=== PATIENT | female | born 1960 ===

== ENCOUNTER 2021-11-01 06:23 | Inpatient (IN) | payer MEDICAID ==
[2021-11-01] MEDS ORDERED: NORepinephrine/NS 8 MG-250 ML 8 MG/250 ML INFUS..BTL IV ONE (06:29)
[2021-11-01] MEDS ORDERED: SODIUM CHLORIDE 0.9% 1000 ML 1,000 ML IV ONE (06:30)
[2021-11-01] MEDS: NORepinephrine/NS 8 MG-250 ML 8 MG/250 ML INFUS..BTL IV SCH ×2 (06:40→16:57)
--- NOTE | 2021-11-01 06:56 | Emergency Department Report ---
HPI - General Chief Complaint: Cardiac Arrest/CPR Time Seen by Provider: 11/01/21 06:28 - HPI HPI: EMS got the call at 533 about the patient who collapsed. They got to the scene and found the patient pulseless apneic and unresponsive. The said that they were walking together when suddenly she collapsed. EMS found the patient in asystole and immediately intubated and performed CPR and ACLS. They got a right tibial IO access and gave 3 rounds of epinephrine on the way to the emergency department. Just prior to arrival the patient regained spontaneous circulation 45 minutes after the call. I am unable to obtain any other information since the patient is unresponsive and intubated. ED Past Medical Hx - Past Medical History Additional medical history: Unable to obtain any information since the patient is unresponsive intubated. ED Review of Systems ROS: Unable to obtain review of systems since the patient is unresponsive and intubated. Physical Exam - Physical Exam Physical Exam: Physical Exam Constitutional: General: Arrived unresponsive. The patient is intubated with a 7 ET tube. 21 at the lip. Appearance: No diaphoresis. HENT: Head: Normocephalic. There is no head trauma Eyes: Pupils: Pupils are equal, mid dilated and unreactive Neck: Musculoskeletal: Normal range of motion. Cardiovascular: Rate and Rhythm: Initially there was no heart sounds. Pulses: No pulses. Heart sounds: No heart sounds Pulmonary: Effort: Good bilateral breath sounds Breath sounds: No wheezing or rales. Chest: Chest wall: No tenderness. Abdominal: General: There is no distension. Palpations: There is no mass. Tenderness: There is no abdominal tenderness. There is no guarding or rebound. Musculoskeletal: Normal range of motion. Skin: General: Skin is warm and dry. Neurological: Mental Status: Unresponsive Psychiatric: Unresponsive ED Course - Reevaluation(s) Reevaluation #1: 11/01/21 06:56 When the patient arrived we could not feel a pulse so we started CPR and gave the patient 1 mg of epinephrine through her intraosseous line. Her ET tube seem to be well positioned with bilateral breath sounds and a positive end-tidal CO2 change. We immediately obtained an EKG at 631 that showed a rate of 104, tachycardia. The rhythm is atrial fibrillation. There is a right bundle branch block. There is diffuse ST segment depression consistent with possible ischemia. But there is no STEMI criteria. Dr. Fortune from cardiology was texted the patient's EKG and he agreed that this did not meet STEMI criteria. Reevaluation #2: 11/01/21 09:26 The patient is on 8 mcg of Levophed which is lower than the 20 that she started out with. She seems more stable. The CT shows severe brain edema consistent with prolonged hypoxia. I spoke to the daughter and her sister were at the bedside now and explained her grave prognosis. I also discussed DNR with the family but they said that the patient would want to be revived so at the time the patient is a full code. Her chemistries are otherwise normal. Her repeat ABG show some progress in her acidosis 11 give her 1 amp of bicarb to help her with that. At this time we are going to go ahead and admit her to the intensive care unit. Total critical care time excluding procedures: 60 minutes. - Central Line Placement Right IJ Consent Obtained: emergent situation Time Out Performed: Yes MD Prep: mask, gown, gloves Central Line Prep: Povidone-Iodine 1%, Chlorhexidine scrub, sterile drapes applied Ultrasound Used for Placement: Yes Central Line Lumen Inserted: triple Reason for Insertion: Emergency Venous Access Bloods Obtained for Lab: Yes Central Line Position: good blood return, all ports aspirated, flus, sutured in place with 2-0 Dressing Applied: Tegaderm Post Procedure X-Ray: tip of catheter in good p Patient Tolerated Procedure: well Complications: none ED Medical Decision Making - Lab Data Result diagrams: 11/01/21 07:25 11/01/21 07:25 Critical care attestation.: If time is entered above; I have spent that time in minutes in the direct care of this critically ill patient, excluding procedure time. ED Disposition Clinical Impression: Cardiac arrest, Cerebral edema, Hypotension Disposition: 02 [facility]ORT TERM HOSPITAL Is pt being admited?: Yes Does the pt Need Aspirin: No Condition: Critical
[2021-11-01 07:06] LABS: ABG Base Excess -16.2 mmol/L (-2.0-3.0); ABG HCO3 16.4 mmol/L (20.0-26.0); ABG Methemoglobin 0.4 % (0.0-1.5); ABG Oxygen Saturation 99.3 % (95.0-99.0); ABG PCO2 74.8 mm Hg
[2021-11-01 07:18] LABS: ABG PH 6.96 pH Units (7.350-7.450); ABG PO2 273.3 mm Hg (80.0-90.0)
--- NOTE | 2021-11-01 07:18 | XRay Report ---
CHEST 1 VIEW 11/01/2021 6:59 AM INDICATION / CLINICAL INFORMATION: Chest Pain. COMPARISON: None available. FINDINGS: SUPPORT DEVICES: ET tube about 5 cm above the vishal. Right IJ CVL appears appropriately position. HEART / MEDIASTINUM: No significant abnormality. LUNGS / PLEURA: No significant pulmonary or pleural abnormality. No pneumothorax. ADDITIONAL FINDINGS: No significant additional findings. IMPRESSION: 1. Endotracheal tube in expected position. Signer Name: Chao Allred MD Signed: 11/01/2021 7:14 AM Workstation Name: [facility]
[2021-11-01 07:46] LABS: Mean Corpuscular HGB Conc 31 % (30-34); Mean Corpuscular Volume 93 fl (79-97); Platelet Count 206 K/mm3 (140-440); Red Blood Count 4.33 M/mm3 (3.65-5.03)
[2021-11-01 07:48] LABS: Hematocrit 40.4 % (30.3-42.9); Hemoglobin 12.4 gm/dl (10.1-14.3)
[2021-11-01 07:55] LABS: INR 1.1 (0.87-1.13)
[2021-11-01 07:56] LABS: Partial Thromboplastin Time 40.6 Sec. (24.2-36.6)
[2021-11-01 08:02] LABS: Albumin 3.4 g/dL (3.9-5); Calcium 7.8 mg/dL (8.4-10.2)
--- NOTE | 2021-11-01 08:28 | Cat Scan Report ---
NONENHANCED CT SCAN OF THE HEAD: INDICATION / CLINICAL INFORMATION: 61 years Female; collapse. TECHNIQUE: Routine CT head without contrast. All CT scans at this location are performed using CT dos e reduction for ALARA by means of automated exposure control. COMPARISON: None. FINDINGS: BRAIN / INTRACRANIAL CONTENTS: Abnormal CT scan Loss of ortiz matter white matter interface in both cerebral hemispheres; low-attenuation areas in th e caudate and in the lentiform nucleus bilaterally; low-attenuation areas in the cerebral hemispheres and cerebellar hemispheres; CT findings consistent with bilateral severe brain edema. Increased CT attenuation in the basal cisterns (pseudo subarachnoid hemorrhage appearance) is due to adjacent low- attenuation areas in the brain. No midline shift Ventricles are system is nondilated Chronic lacune in the left caudate Increased is CT attenuation in the venous sinuses ORBITS: No significant abnormality of visualized orbits. SINUSES / MASTOIDS: No significant abnormality of the visualized paranasal sinuses or mastoid air abby ls. ADDITIONAL FINDINGS: Large sebaceous cyst IMPRESSION: CT findings consistent with bilateral severe brain edema Signer Name: Walter Fish MD Signed: 11/01/2021 8:24 AM Workstation Name: [email or web address]
--- NOTE | 2021-11-01 08:52 | XRay Report ---
XR abdomen 1V ap INDICATION: OG placement COMPARISON: None. FINDINGS/IMPRESSION: Enteric tube terminates in the mid stomach. Side-port is beneath the GE junction. Signer Name: Bubba Shaw MD Signed: 11/01/2021 8:47 AM Workstation Name: [id number]
[2021-11-01 08:59] LABS: ABG Base Excess -14.2 mmol/L (-2.0-3.0); ABG HCO3 16.2 mmol/L (20.0-26.0); ABG Methemoglobin 0.6 % (0.0-1.5); ABG Oxygen Saturation 89.8 % (95.0-99.0); ABG PCO2 56.5 mm Hg; ABG PO2 74.1 mm Hg (80.0-90.0)
[2021-11-01 08:59] LABS: Total Cells Counted 100
[2021-11-01 09:00] LABS: Band Neutrophils # (Manual) 0.3 K/mm3; Basophils % (Manual) 0 % (0.0-1.8); Myelocytes # (Manual) 0.2 K/mm3; Platelet Estimate Consistent w Auto; Promyelocytes # (Manual) 0.3 K/mm3
[2021-11-01] MEDS ORDERED: LORazepam 2 MG/ML VIAL IV ONE (09:00)
[2021-11-01 09:05] LABS: Bacteria,Urine 1+ /HPF (Negative); Mucus,Urine FEW /HPF
[2021-11-01 09:06] LABS: ABG PH 7.075 pH Units (7.350-7.450)
[2021-11-01 09:07] LABS: Benzodiazepines Screen,Urine Negative; Cannabinoid Screen,Urine Negative; Methadone Screen,Urine Negative; Opiate Screen,Urine Negative
[2021-11-01] MEDS ORDERED: SODIUM BICARB 8.4% 50 MEQ/50 ML SYRINGE IV ONE (09:18)
[2021-11-01 09:19] LABS: Amphetamine Screen,Urine Positive; Cocaine Screen,Urine Positive
[2021-11-01 09:29] LABS: Bilirubin,Urine Negative (Negative); Color,Urine Yellow (Yellow)
[2021-11-01 09:30] LABS: Blood,Urine Large (Negative); PH,Urine 6.5 (5.0-7.0); Urobilinogen,Urine < 2.0 mg/dL (<2.0)
--- NOTE | 2021-11-01 11:44 | Electrocardiograph Report ---
[facility] Test Date: 2021-11-01 Test Time: 06:31:12 Pat Name: LAURA RAMIREZ Department: Room: Gender: F Terminal Supervisor: MANE : 1960 Requested By: KIRAN GASTON Order Number: [id number] Reading MD: Fuentes Roberts Measurements Intervals [place] Rate: 104 P: OK: QRS: 66 QRSD: 135 T: -87 QT: 363 QTc: 477 Interpretive Statements Atrial fibrillation Right bundle branch block Repol abnrm suggests ischemia, diffuse leads No previous ECG available for comparison Electronically Signed On 11-01-2021 11:44:28 EDT by Fuentes Roberts
[2021-11-01] MEDS ORDERED: ACETAMINOPHEN 650 MG RECT SUPP PR PRN (12:30)
[2021-11-01] MEDS ORDERED: ONDANSETRON 4 MG/2 ML INJ IV PRN (12:30)
[2021-11-01] MEDS ORDERED: MORPHINE 2 MG/1 ML INJ IV PRN (12:30)
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
[2021-11-01] MEDS ORDERED: ENOXAPARIN 40 MG/0.4 ML INJ SUB-Q SCH (13:00)
[2021-11-01] MEDS: HEPARIN 5,000 UNIT/1 ML VIAL SUB-Q SCH ×2 (15:55→22:12)
[2021-11-02] MEDS ORDERED: SODIUM CHLORIDE 0.9% 1000 ML 1,000 ML IV SCH (03:45)
[2021-11-02 05:08] LABS: Basophils % (Auto) 0.2 % (0.0-1.8); Eosinophils % (Auto) 0.1 % (0.0-4.3); Hematocrit 45.9 % (30.3-42.9); Lymphocytes # (Auto) 0.8 K/mm3 (1.2-5.4); Lymphocytes % (Auto) 6.3 % (13.4-35.0); Mean Corpuscular HGB Conc 33 % (30-34); Mean Corpuscular Volume 87 fl (79-97); Monocytes # (Auto) 0.5 K/mm3 (0.0-0.8); Platelet Count 200 K/mm3 (140-440); Red Blood Count 5.27 M/mm3 (3.65-5.03)
[2021-11-02 05:14] LABS: Albumin 3.5 g/dL (3.9-5); Calcium 7.5 mg/dL (8.4-10.2)
[2021-11-02 06:14] LABS: ABG Base Excess -1.8 mmol/L (-2.0-3.0); ABG HCO3 23.7 mmol/L (20.0-26.0); ABG Methemoglobin 0.5 % (0.0-1.5); ABG Oxygen Saturation 97.2 % (95.0-99.0); ABG PCO2 43.3 mm Hg; ABG PH 7.357 pH Units (7.350-7.450); ABG PO2 97.4 mm Hg (80.0-90.0)
[2021-11-02] MEDS: NORepinephrine/NS 8 MG-250 ML 8 MG/250 ML INFUS..BTL IV SCH ×2 (06:49→20:11)
[2021-11-02] MEDS: HEPARIN 5,000 UNIT/1 ML VIAL SUB-Q SCH ×2 (09:14→21:04)
--- NOTE | 2021-11-02 09:57 | XRay Report ---
ABDOMEN 1 VIEW(S) INDICATION / CLINICAL INFORMATION: New OG placement. COMPARISON: 11/01/2021 FINDINGS: TUBES / LINES: Esophagogastric tube sidehole projects over the proximal stomach.. BOWEL GAS PATTERN/EXTRALUMINAL GAS: There are mildly dilated loops of gas-filled small bowel. No pneu matosis or secondary signs of free air. ADDITIONAL FINDINGS: No significant additional findings. IMPRESSION: 1. Esophagogastric tube sidehole projects over the proximal stomach. 2. Loops of small bowel are mildly dilated compatible with possible obstruction/ileus. Signer Name: Shahzad Whitney MD Signed: 11/02/2021 9:53 AM Workstation Name: [id number] [employer]
--- NOTE | 2021-11-02 10:29 | Consultation ---
History of Present Illness Consult date: 11/02/21 Requesting physician: KIRAN GASTON Reason for consult: other (Out of Hospital Cardiac arrest) History of present illness: 61 y/o female with prior history of polysubstance abuse per family admitted via the ED as out of hospital cardiac arrest. Patient was down for about 45 minutes per report. Patient has diffuse cerebral edema already on initial imaging in the ED. She is unresponsive on the vent and not on sedation. Past History Past Medical History: other (unable to obtain) Past Surgical History: Other (unable to obtain) Social history: other (polysubstanc abuse) Family history: other (unable to obtain) Medications and Allergies Allergies Allergy/AdvReac Type Severity Reaction Status Date / Time No Known Allergies Allergy Verified 11/01/21 10:57 Active Meds: Active Medications Acetaminophen (Acetaminophen 650 Mg Rect Supp) 650 mg UT Q6H PRN PRN Reason: Pain MILD(1-3)/Fever >100.5/ATKINS Heparin Sodium (Porcine) (Heparin 5,000 Unit/1 Ml Vial) 5,000 unit SUB-Q Q12HR LAW Last Admin: 11/02/21 09:14 Dose: 5,000 unit NORepinephrine/NS 8 MG-250 ML (Norepinephrine/Ns 8 Mg-250 Ml (Double Conc)) 8 mg in 250 mls @ 3.75 mls/hr IV TITRATE LAW; Protocol Last Titration: 11/02/21 10:05 Dose: 4 mcg/min, 7.5 mls/hr Lactated Ringer's (Lactated Ringers) 1,000 mls @ 999 mls/hr IV BOLUS ONE Stop: 11/02/21 11:26 Morphine Sulfate (Morphine 2 Mg/1 Ml Inj) 2 mg IV Q4H PRN PRN Reason: Pain, Moderate (4-6) Ondansetron HCl (Ondansetron 4 Mg/2 Ml Inj) 4 mg IV Q8H PRN PRN Reason: Nausea And Vomiting Sodium Chloride (Sodium Chloride 0.9% 10 Ml Flush Syringe) 10 ml IV BID LAW Last Admin: 11/02/21 09:14 Dose: 10 ml Sodium Chloride (Sodium Chloride 0.9% 10 Ml Flush Syringe) 10 ml IV PRN PRN PRN Reason: LINE FLUSH Review of Systems ROS unobtainable: due to endotracheal tube, due to mental status Physical Examination Vital signs: Vital Signs Pulse Pulse Ox 138 H 98 11/01/21 06:32 11/01/21 06:32 General appearance: no acute distress, comatose Eyes: non-icteric ENT: other (orally intubated ) Neck: supple Effort: normal Ascultation: Bilateral: clear Percussion: Bilateral: not dull Cardiovascular: regular rate and rhythm Gastrointestinal: normoactive bowel sounds, soft Extremities: pulses normal unable to assess Results - Laboratory Findings CBC and BMP: 11/02/21 04:27 11/02/21 04:27 ABG ABG pH 7.357 pH Units (7.350-7.450) 11/02/21 04:50 ABG pCO2 43.3 mm Hg 11/02/21 04:50 ABG pO2 97.4 mm Hg (80.0-90.0) H 11/02/21 04:50 ABG O2 Saturation 97.2 % (95.0-99.0) 11/02/21 04:50 PT/INR, D-dimer PT 15.5 Sec. (12.2-14.9) H 11/01/21 07:25 INR 1.10 (0.87-1.13) 11/01/21 07:25 Abnormal lab findings: Abnormal Labs 11/01/21 11/01/21 11/01/21 06:50 07:25 07:25 WBC 15.5 H RBC Hgb Hct RDW 17.0 H Lymph % (Auto) Lymph # (Auto) Seg Neutrophils % Seg Neutrophils # Seg Neutrophils # Man 10.1 H PT 15.5 H APTT 40.6 H ABG pH 6.960 L* ABG pO2 273.3 H ABG HCO3 16.4 L ABG O2 Saturation 99.3 H ABG Base Excess -16.2 L ABG Carboxyhemoglobin 5.5 H Oxyhemoglobin 93.4 L Sodium Potassium Chloride Carbon Dioxide BUN Creatinine Glucose POC Glucose Lactic Acid Calcium AST ALT Alkaline Phosphatase Total Protein Albumin Urine Blood Urine WBC (Auto) 11/01/21 11/01/21 11/01/21 07:25 07:25 23:44 WBC RBC Hgb Hct RDW Lymph % (Auto) Lymph # (Auto) Seg Neutrophils % Seg Neutrophils # Seg Neutrophils # Man PT APTT ABG pH ABG pO2 ABG HCO3 ABG O2 Saturation ABG Base Excess ABG Carboxyhemoglobin Oxyhemoglobin Sodium 146 H Potassium 3.5 L Chloride Carbon Dioxide 14 L BUN Creatinine 1.5 H Glucose 292 H POC Glucose 138 H Lactic Acid 14.50 H* Calcium 7.8 L AST 112 H ALT 78 H Alkaline Phosphatase 136 H Total Protein 6.0 L Albumin 3.4 L Urine Blood Urine WBC (Auto) 11/01/21 11/01/21 11/02/21 Unknown Unknown 04:27 WBC 12.2 H RBC 5.27 H Hgb 15.0 H Hct 45.9 H RDW 16.0 H Lymph % (Auto) 6.3 L Lymph # (Auto) 0.8 L Seg Neutrophils % 89.4 H Seg Neutrophils # 10.9 H Seg Neutrophils # Man PT APTT ABG pH 7.075 L* ABG pO2 74.1 L ABG HCO3 16.2 L ABG O2 Saturation 89.8 L ABG Base Excess -14.2 L ABG Carboxyhemoglobin Oxyhemoglobin 86.0 L Sodium Potassium Chloride Carbon Dioxide BUN Creatinine Glucose POC Glucose Lactic Acid Calcium AST ALT Alkaline Phosphatase Total Protein Albumin Urine Blood Large A Urine WBC (Auto) 34.0 H 11/02/21 11/02/21 11/02/21 04:27 04:50 05:28 WBC RBC Hgb Hct RDW Lymph % (Auto) Lymph # (Auto) Seg Neutrophils % Seg Neutrophils # Seg Neutrophils # Man PT APTT ABG pH ABG pO2 97.4 H ABG HCO3 ABG O2 Saturation ABG Base Excess ABG Carboxyhemoglobin Oxyhemoglobin Sodium 149 H Potassium Chloride 108.9 H Carbon Dioxide BUN 33 H Creatinine 1.9 H Glucose 128 H POC Glucose 109 H Lactic Acid Calcium 7.5 L AST 133 H ALT 123 H Alkaline Phosphatase Total Protein Albumin 3.5 L Urine Blood Urine WBC (Auto) Assessment and Plan 61 y/o female with acute respiratory failure secondary to out of hospital cardiac arrest with prolonged downtime. Spoke with at bedside this am who was not very understanding of the current situation. He made statements such as "so you are the end all be all" and "you trying to put my in the dirt". I tried my best to explain the clinical state. He also states that he would like his transferred to [facility]. I explained that if he has an accepting physician, if he gives us the name then we can arrange transfer, but at this time, we would not be calling [facility] for transfer as clinically there is nothing they could do that we are not already doing for this patient. The primary team has spoken with the daughter but I am not sure of the exact details of that convo. 1. Continue supportive measures 2. Wean Fio2 as tolerate for sats >88% 3. Follow up echo report 4. Wean Pressors for MAPs> 65 5. Very poor prognosis given cerebral edema present already post arrest and like of neurological improvement. CCT 31 minutes
[2021-11-02] MEDS ORDERED: LACTATED RINGERS 1,000 ML IV ONE ×2 (11:00→14:18)
--- NOTE | 2021-11-02 11:35 | Consultation ---
History of Present Illness Consult date: 11/02/21 History of present illness: 61-year-old female presenting out of hospital cardiopulmonary arrest. Currently intubated and unresponsive on mechanical ventilator. Patient with a known history of polysubstance abuse. Past History Past Medical History: other (unable to obtain) Past Surgical History: Other (unable to obtain) Social history: other (polysubstanc abuse) Family history: other (unable to obtain) Medications and Allergies Allergies Allergy/AdvReac Type Severity Reaction Status Date / Time No Known Allergies Allergy Verified 11/01/21 10:57 Active Meds: Active Medications Acetaminophen (Acetaminophen 650 Mg Rect Supp) 650 mg AR Q6H PRN PRN Reason: Pain MILD(1-3)/Fever >100.5/ATKINS Heparin Sodium (Porcine) (Heparin 5,000 Unit/1 Ml Vial) 5,000 unit SUB-Q Q12HR LAW Last Admin: 11/02/21 09:14 Dose: 5,000 unit NORepinephrine/NS 8 MG-250 ML (Norepinephrine/Ns 8 Mg-250 Ml (Double Conc)) 8 mg in 250 mls @ 3.75 mls/hr IV TITRATE LAW; Protocol Last Titration: 11/02/21 11:03 Dose: 4 mcg/min, 7.5 mls/hr Lactated Ringer's (Lactated Ringers) 1,000 mls @ 999 mls/hr IV BOLUS ONE Stop: 11/02/21 12:00 Last Admin: 11/02/21 11:00 Dose: 999 mls/hr Morphine Sulfate (Morphine 2 Mg/1 Ml Inj) 2 mg IV Q4H PRN PRN Reason: Pain, Moderate (4-6) Ondansetron HCl (Ondansetron 4 Mg/2 Ml Inj) 4 mg IV Q8H PRN PRN Reason: Nausea And Vomiting Sodium Chloride (Sodium Chloride 0.9% 10 Ml Flush Syringe) 10 ml IV BID LAW Last Admin: 11/02/21 09:14 Dose: 10 ml Sodium Chloride (Sodium Chloride 0.9% 10 Ml Flush Syringe) 10 ml IV PRN PRN PRN Reason: LINE FLUSH Review of Systems ROS unobtainable: due to endotracheal tube, due to mental status Physical Examination Vital Signs Pulse Pulse Ox 138 H 98 11/01/21 06:32 11/01/21 06:32 General appearance: other (intubated on mechanical ventilator) HEENT: Positive: PERRL, Normocephaly, Mucus Membranes Moist Neck: Positive: neck supple. Negative: JVD/HJR Cardiac: Positive: Regular Rate, S1/S2, PMI, Laterally Displaced. Negative: S3, S4 Lungs: Positive: clear to auscultation, No Wheeze, Rales, Rhonchi Neuro: Positive: Other (Unresponsive ) Abdomen: Positive: Soft, Active Bowel Sounds Extremities: Absent: edema Results 11/02/21 04:27 11/02/21 04:27 Cardiac Enzymes 11/02/21 Range/Units 04:27 AST 133 H (5-40) units/L CBC 11/02/21 Range/Units 04:27 WBC 12.2 H (4.5-11.0) K/mm3 RBC 5.27 H (3.65-5.03) M/mm3 Hgb 15.0 H (10.1-14.3) gm/dl Hct 45.9 H (30.3-42.9) % Plt Count 200 (140-440) K/mm3 Lymph # (Auto) 0.8 L (1.2-5.4) K/mm3 [place] # (Auto) 0.5 (0.0-0.8) K/mm3 Eos # (Auto) 0.0 (0.0-0.4) K/mm3 Baso # (Auto) 0.0 (0.0-0.1) K/mm3 Comprehensive Metabolic Panel 11/02/21 Range/Units 04:27 Sodium 149 H (137-145) mmol/L Potassium 3.7 (3.6-5.0) mmol/L Chloride 108.9 H (98-107) mmol/L Carbon Dioxide 24 D (22-30) mmol/L BUN 33 H (7-17) mg/dL Creatinine 1.9 H (0.6-1.2) mg/dL Glucose 128 H (65-100) mg/dL Calcium 7.5 L (8.4-10.2) mg/dL AST 133 H (5-40) units/L ALT 123 H (7-56) units/L Alkaline Phosphatase 122 (35-129) units/L Total Protein 6.4 (6.3-8.2) g/dL Albumin 3.5 L (3.9-5) g/dL EKG interpretations - Telemetry EKG Rhythm: Atrial Fibrillation Assessment and Plan 1. Status post cardiopulmonary arrest probably precipitated by polysubstance abuse 2. Respiratory failure intubated on mechanical ventilator 3. Atrial fibrillation with a controlled ventricular response 4. Acute kidney injury 5. Abnormal liver function test 6. Polysubstance abuse 7. Secondary polycythemia Plan. Patient is currently on IV pressor agents. Echocardiogram will be done to a ssess LV global and regional function. Wean off pressor agents as tolerated. Anticoagulation while in atrial fibrillation. Follow serial cardiac enzymes.
--- NOTE | 2021-11-02 13:52 | Nuclear Medicine Report ---
Brain flow Scan HISTORY: brain . Patient is unresponsive on vent TECHNIQUE: Patient was given 22 mCi of technetium pertechnetate. Imaging was performed immediately a nd over a span of 115 seconds COMPARISON: CT head from yesterday FINDINGS: There is no radiotracer uptake in the cerebral hemispheres or in the cerebellum. There is uptake over the nose, thyroid, and in the region of the brainstem. IMPRESSION: Abnormal exam as above with no radiotracer uptake in the majority of the brain. Signer Name: Chas Cat MD Signed: 11/02/2021 1:48 PM Workstation Name: [id number]
--- NOTE | 2021-11-02 16:41 | Progress Note ---
<KALPESHDAYDAY SiriCorey - Last Filed: 11/03/21 07:17> Assessment and Plan Assessment and plan: This is a 61-year-old female with polysubstance abuse admitted s/p cardiac arrest with acute hypoxic respiratory failure, anoxic brain injury, cerebral edema Neuro: Cerebral edema, anoxic brain injury, h/o polysubstance abuse -Admit CT head findings consistent with HIWOT concerning for brain due to mu ltiple cardiac arrest -No pupillary reaction, cough/gag, response to painful stimuli -No sedation -Nuclear brain flow study is abnormal exam with no radiotracer uptake in majority of the brain -Neurology consulted, appreciate recommendations -As needed analgesia Cardiac: Afib with controlled RVR, HFrEF -Cardiology consulted, appreciate recommendations -Blood pressure monitoring per protocol -Vasopressor support with Levophed -2 LR bolus -Vasopressor on standby -MAP goal greater than 65 -Echocardiogram shows mild LVH, LVEF is 30% Respiratory: Acute hypoxic respiratory failure -CCM consulted, appreciate recommendations -Intubated in the field on 11/01 by EMS with 7.0 ETT at 23 at the lip -A.m. vent settings: Assist control tidal volume 450, rate 20, PEEP 8, 80% FiO2 -Wean FiO2 as tolerated -See RT notes for titration -A.m. ABG and CXR noted -VAP bundle -SPO2 monitoring GI: Obesity, transaminitis, protein calorie malnutrition -24 hours -662 -PPI : Acute kidney injury likely secondary to vasomotor nephropathy, hypernatremia, hyperchloremia -Strict intake and output -Renally dose medications -Avoid nephrotoxic medications -Trend BMP -Free water flush -Discontinue normal saline IV fluid ID: GNR UTI, GPC in tracheal aspirate -f/u blood culture -Monitor WBC and temperature curve Endo: NAD -Avoid hypoglycemia Heme: Leukocytosis -Trend CBC -Transfuse hemoglobin less than 7 -Monitor for signs of bleeding -SCDs to BLE while in bed The high probability of a clinically significant, sudden or life threatening deterioration of the [multi] system(s) required my full and direct attention, intervention and personal management. The aggregate critical care time was [90] minutes. This time is in addition to time spent performing reported procedures but includes the following: [x] Data Review and interpretation [x] Patient assessment and monitoring of vital signs [x] Documentation [x] Medication orders and management Disposition Plan: icu Total Time Spent with Patient (Minutes): 90 History Interval history: This is a 61-year-old female with polysubstance abuse (cocaine, amphetamine, nicotine, heroin and fentanyl) who presented to [facility] on 11/01 s/p cardiac arrest via EMS. Per EMS report and ER physician documentation patient had collapsed at 0533 on 11/01 on EMS arrival patient was found to be apneic, pulseless and unresponsive. Per patient told EMS that she was walking with him and suddenly collapsed. EMS immediately started ACLS/CPR and after multiple rounds of epinephrine and ROSC was received 45 minutes after initial call and patient was intubated. In the emergency department patient had another cardiac arrest and received 1 mg epinephrine through IO line and ECG showed atrial fibrillation, right bundle branch block and diffuse ST segment depression and cardiology was contacted however patient did not meet STEMI criteria. Patient became hypotensive also and was started on Levophed. Patient received a CT head which showed cerebral edema. She also received 1 amp of bicarbonate for acidosis. Patient admitted to the hospitalist service s/p cardiac arrest with consults to [facility]. 11/02: Patient had a nuclear brain flow study today, [employer] [address] updated family on results of nuclear brain flow study. Patient started on vasopressors to maintain MAP greater than 65. [facility] at bedside who states the patient is on registry. [facility] had prolonged conversation with family today and family stated they would like patient transferred to another hospital and was informed that if they have a accepting physician transfer can be arranged. Hospitalist Physical - Constitutional Vitals: Temp Pulse Resp BP Pulse Ox 99.3 F 119 H 20 56/33 97 11/02/21 12:00 11/02/21 15:19 11/02/21 15:00 11/02/21 15:19 11/02/21 15:19 General appearance: Present: other (intubated on mechanical ventilator) - EENT Eyes: Absent: PERRL, EOM intact ENT: poor dentition - Neck Neck: Absent: masses or JVD, cervical LAD - Respiratory Respiratory effort: normal Respiratory: bilateral: diminished - Cardiovascular Rhythm: regular Heart Sounds: Present: S1 & S2. Absent: systolic murmur, diastolic murmur - Extremities Extremities: no ischemia, pulses intact, pulses symmetrical Peripheral Pulses: within normal limits - Abdominal General gastrointestinal: soft, non-tender, non-distended, normal bowel sounds - Integumentary Integumentary: Present: warm, dry - Psychiatric Psychiatric: other - Neurologic Neurologic: other (no cough/gag, pupils not reactive, no response to painful stimuli) - Allied Health Allied health notes reviewed: nursing, RT HEART Score - HEART Score Troponin: Troponin T 0.023 ng/mL (0.00-0.029) 11/01/21 07:25 Results - Labs CBC & Chem 7: 11/02/21 04:27 11/02/21 04:27 Labs: Laboratory Last Values WBC 12.2 K/mm3 (4.5-11.0) H 11/02/21 04:27 RBC 5.27 M/mm3 (3.65-5.03) H 11/02/21 04:27 Hgb 15.0 gm/dl (10.1-14.3) H 11/02/21 04:27 Hct 45.9 % (30.3-42.9) H 11/02/21 04:27 MCV 87 fl (79-97) 11/02/21 04:27 MCH 28 pg (28-32) 11/02/21 04:27 MCHC 33 % (30-34) 11/02/21 04:27 RDW 16.0 % (13.2-15.2) H 11/02/21 04:27 Plt Count 200 K/mm3 (140-440) 11/02/21 04:27 Lymph % (Auto) 6.3 % (13.4-35.0) L 11/02/21 04:27 [place] % (Auto) 4.0 % (0.0-7.3) 11/02/21 04:27 Eos % (Auto) 0.1 % (0.0-4.3) 11/02/21 04:27 Baso % (Auto) 0.2 % (0.0-1.8) 11/02/21 04:27 Lymph # (Auto) 0.8 K/mm3 (1.2-5.4) L 11/02/21 04:27 [place] # (Auto) 0.5 K/mm3 (0.0-0.8) 11/02/21 04:27 Eos # (Auto) 0.0 K/mm3 (0.0-0.4) 11/02/21 04:27 Baso # (Auto) 0.0 K/mm3 (0.0-0.1) 11/02/21 04:27 Add Manual Diff Complete 11/01/21 07:25 Total Counted 100 11/01/21 07:25 Seg Neutrophils % 89.4 % (40.0-70.0) H 11/02/21 04:27 Seg Neuts % (Manual) 65.0 % (40.0-70.0) 11/01/21 07:25 Band Neutrophils % 2.0 % 11/01/21 07:25 Lymphocytes % (Manual) 21.0 % (13.4-35.0) 11/01/21 07:25 Reactive Lymphs % (Man) 0 % 11/01/21 07:25 Monocytes % (Manual) 4.0 % (0.0-7.3) 11/01/21 07:25 Eosinophils % (Manual) 2.0 % (0.0-4.3) 11/01/21 07:25 Basophils % (Manual) 0 % (0.0-1.8) 11/01/21 07:25 Metamyelocytes % 3.0 % 11/01/21 07:25 Myelocytes % 1.0 % 11/01/21 07:25 Promyelocytes % 2.0 % 11/01/21 07:25 Blast Cells % 0 % 11/01/21 07:25 Nucleated RBC % Not Reportable 11/01/21 07:25 Seg Neutrophils # 10.9 K/mm3 (1.8-7.7) H 11/02/21 04:27 Seg Neutrophils # Man 10.1 K/mm3 (1.8-7.7) H 11/01/21 07:25 Band Neutrophils # 0.3 K/mm3 11/01/21 07:25 Lymphocytes # (Manual) 3.3 K/mm3 (1.2-5.4) 11/01/21 07:25 Abs React Lymphs (Man) 0.0 K/mm3 11/01/21 07:25 Monocytes # (Manual) 0.6 K/mm3 (0.0-0.8) 11/01/21 07:25 Eosinophils # (Manual) 0.3 K/mm3 (0.0-0.4) 11/01/21 07:25 Basophils # (Manual) 0.0 K/mm3 (0.0-0.1) 11/01/21 07:25 Metamyelocytes # 0.5 K/mm3 11/01/21 07:25 Myelocytes # 0.2 K/mm3 11/01/21 07:25 Promyelocytes # 0.3 K/mm3 11/01/21 07:25 Blast Cells # 0.0 K/mm3 11/01/21 07:25 WBC Morphology Not Reportable 11/01/21 07:25 Hypersegmented Neuts Not Reportable 11/01/21 07:25 Hyposegmented Neuts Not Reportable 11/01/21 07:25 Hypogranular Neuts Not Reportable 11/01/21 07:25 Smudge Cells Not Reportable 11/01/21 07:25 Toxic Granulation Not Reportable 11/01/21 07:25 Toxic Vacuolation Not Reportable 11/01/21 07:25 Dohle Bodies Not Reportable 11/01/21 07:25 Pelger-Huet Anomaly Not Reportable 11/01/21 07:25 Lashonda Rods Not Reportable 11/01/21 07:25 Platelet Estimate Consistent w auto 11/01/21 07:25 Clumped Platelets Not Reportable 11/01/21 07:25 Plt Clumps, EDTA Not Reportable 11/01/21 07:25 Large Platelets Not Reportable 11/01/21 07:25 Giant Platelets Not Reportable 11/01/21 07:25 Platelet Satelliting Not Reportable 11/01/21 07:25 Plt Morphology Comment Not Reportable 11/01/21 07:25 RBC Morphology Not Reportable 11/01/21 07:25 Dimorphic RBCs Not Reportable 11/01/21 07:25 Polychromasia Not Reportable 11/01/21 07:25 Hypochromasia Not Reportable 11/01/21 07:25 Poikilocytosis Not Reportable 11/01/21 07:25 Anisocytosis Not Reportable 11/01/21 07:25 Microcytosis Not Reportable 11/01/21 07:25 Macrocytosis Not Reportable 11/01/21 07:25 Spherocytes Not Reportable 11/01/21 07:25 Pappenheimer Bodies Not Reportable 11/01/21 07:25 Sickle Cells Not Reportable 11/01/21 07:25 Target Cells Not Reportable 11/01/21 07:25 Tear Drop Cells Not Reportable 11/01/21 07:25 Ovalocytes Not Reportable 11/01/21 07:25 Helmet Cells Not Reportable 11/01/21 07:25 [place] Bodies Not Reportable 11/01/21 07:25 [place] Rings Not Reportable 11/01/21 07:25 Gabriel Cells Not Reportable 11/01/21 07:25 Bite Cells Not Reportable 11/01/21 07:25 Crenated Cell Not Reportable 11/01/21 07:25 Elliptocytes Not Reportable 11/01/21 07:25 Acanthocytes (Spur) Not Reportable 11/01/21 07:25 Rouleaux Not Reportable 11/01/21 07:25 Hemoglobin C Crystals Not Reportable 11/01/21 07:25 Schistocytes Not Reportable 11/01/21 07:25 Malaria parasites Not Reportable 11/01/21 07:25 Philippe Bodies Not Reportable 11/01/21 07:25 Hem Pathologist Commnt No 11/01/21 07:25 PT 15.5 Sec. (12.2-14.9) H 11/01/21 07:25 INR 1.10 (0.87-1.13) 11/01/21 07:25 APTT 40.6 Sec. (24.2-36.6) H 11/01/21 07:25 ABG pH 7.357 pH Units (7.350-7.450) 11/02/21 04:50 ABG pCO2 43.3 mm Hg 11/02/21 04:50 ABG pO2 97.4 mm Hg (80.0-90.0) H 11/02/21 04:50 ABG HCO3 23.7 mmol/L (20.0-26.0) 11/02/21 04:50 ABG O2 Saturation 97.2 % (95.0-99.0) 11/02/21 04:50 ABG O2 Content 20.0 (0.0-44) 11/02/21 04:50 ABG Base Excess -1.8 mmol/L (-2.0-3.0) 11/02/21 04:50 ABG Hemoglobin 14.8 gm/dl (12.0-16.0) 11/02/21 04:50 ABG Carboxyhemoglobin 0.9 % (0.0-5.0) 11/02/21 04:50 ABG Methemoglobin 0.5 % (0.0-1.5) 11/02/21 04:50 Oxyhemoglobin 95.8 % (95.0-99.0) 11/02/21 04:50 FiO2 80 % 11/02/21 04:50 Sodium 149 mmol/L (137-145) H 11/02/21 04:27 Potassium 3.7 mmol/L (3.6-5.0) 11/02/21 04:27 Chloride 108.9 mmol/L (98-107) H 11/02/21 04:27 Carbon Dioxide 24 mmol/L (22-30) D 11/02/21 04:27 Anion Gap 20 mmol/L 11/02/21 04:27 BUN 33 mg/dL (7-17) H 11/02/21 04:27 Creatinine 1.9 mg/dL (0.6-1.2) H 11/02/21 04:27 Estimated GFR 27 ml/min 11/02/21 04:27 BUN/Creatinine Ratio 17 % 11/02/21 04:27 Glucose 128 mg/dL (65-100) H 11/02/21 04:27 POC Glucose 109 mg/dL (70-105) H 11/02/21 05:28 Lactic Acid 14.50 mmol/L (0.7-2.0) H* 11/01/21 07:25 Calcium 7.5 mg/dL (8.4-10.2) L 11/02/21 04:27 Total Bilirubin 0.60 mg/dL (0.1-1.2) 11/02/21 04:27 AST 133 units/L (5-40) H 11/02/21 04:27 ALT 123 units/L (7-56) H 11/02/21 04:27 Alkaline Phosphatase 122 units/L (35-129) 11/02/21 04:27 Troponin T 0.023 ng/mL (0.00-0.029) 11/01/21 07:25 Total Protein 6.4 g/dL (6.3-8.2) 11/02/21 04:27 Albumin 3.5 g/dL (3.9-5) L 11/02/21 04:27 Albumin/Globulin Ratio 1.2 % 11/02/21 04:27 Urine Color Yellow (Yellow) 11/01/21 Unknown Urine Turbidity Hazy (Clear) 11/01/21 Unknown Urine pH 6.5 (5.0-7.0) 11/01/21 Unknown Ur Specific [place] 1.020 (1.003-1.030) 11/01/21 Unknown Urine Protein 100 mg/dl mg/dL (Negative) 11/01/21 Unknown Urine Glucose (UA) Negative mg/dL (Negative) 11/01/21 Unknown Urine Ketones Negative mg/dL (Negative) 11/01/21 Unknown Urine Blood Large (Negative) A 11/01/21 Unknown Urine Nitrite Negative (Negative) 11/01/21 Unknown Ur Reducing Substances Not Reportable 11/01/21 Unknown Urine Bilirubin Negative (Negative) 11/01/21 Unknown Urine Ictotest Not Reportable 11/01/21 Unknown Urine Urobilinogen < 2.0 mg/dL (<2.0) 11/01/21 Unknown Ur Leukocyte Esterase Negative (Negative) 11/01/21 Unknown Urine WBC (Auto) 34.0 /HPF (0.0-6.0) H 11/01/21 Unknown Urine RBC (Auto) 14.0 /HPF (0.0-6.0) 11/01/21 Unknown U Epithel Cells (Auto) 1.0 /HPF (0-13.0) 11/01/21 Unknown Urine Bacteria (Auto) 1+ /HPF (Negative) 11/01/21 Unknown Urine Mucus Few /HPF 11/01/21 Unknown Urine Yeast (Budding) Few /HPF 11/01/21 Unknown Urine Opiates Screen Negative 11/01/21 Unknown Urine Methadone Screen Negative 11/01/21 Unknown Ur Barbiturates Screen Negative 11/01/21 Unknown Ur Phencyclidine Scrn Negative 11/01/21 Unknown Ur Amphetamines Screen Positive 11/01/21 Unknown U Benzodiazepines Scrn Negative 11/01/21 Unknown Urine Cocaine Screen Positive 11/01/21 Unknown U Marijuana (THC) Screen Negative 11/01/21 Unknown Drugs of Abuse Note Disclamer 11/01/21 Unknown Blood Type O POSITIVE 11/01/21 07:25 Antibody Screen Negative 11/01/21 07:25 Microbiology: Microbiology 11/01/21 06:51 Tracheal Aspirate Sputum Culture - Preliminary 11/01/21 Unknown Urine,Clean Catch Urine Culture - Preliminary Gram Negative Tong 11/01/21 07:25 Peripheral/Venous Blood Culture - Preliminary NO GROWTH AFTER 24 HOURS 11/01/21 07:25 Peripheral/Venous Blood Culture - Preliminary NO GROWTH AFTER 24 HOURS Stauffer/IV: Voiding Method Indwelling Catheter Active Medications - Current Medications Current Medications: Generic Name Dose Route Start Last Admin Trade Name Freq PRN Reason Stop Dose Admin Acetaminophen 650 mg 11/01/21 12:30 Acetaminophen 650 Mg Rect Supp SD Q6H PRN Pain MILD(1-3)/Fever >100.5/ATKINS Heparin Sodium (Porcine) 5,000 unit 11/01/21 12:30 11/02/21 09:14 Heparin 5,000 Unit/1 Ml Vial SUB-Q 5,000 unit Q12HR LAW Administration NORepinephrine/NS 8 MG-250 ML 8 mg in 250 mls @ 3.75 mls/hr 11/01/21 07:00 11/02/21 15:16 Norepinephrine/Ns 8 Mg-250 Ml (Double Conc) IV 16 mcg/min TITRATE LAW 30 mls/hr Titration Protocol 2 MCG/MIN Vasopressin 20 unit/ Sodium 101 mls @ 9.09 mls/hr 11/02/21 15:00 Chloride IV TITR LAW Protocol 0.03 UNITS/MIN Morphine Sulfate 2 mg 11/01/21 12:30 Morphine 2 Mg/1 Ml Inj IV Q4H PRN Pain, Moderate (4-6) Ondansetron HCl 4 mg 11/01/21 12:30 Ondansetron 4 Mg/2 Ml Inj IV Q8H PRN Nausea And Vomiting Sodium Chloride 10 ml 11/01/21 12:00 11/02/21 09:14 Sodium Chloride 0.9% 10 Ml Flush Syringe IV 10 ml BID LAW Administration Sodium Chloride 10 ml 11/01/21 12:30 Sodium Chloride 0.9% 10 Ml Flush Syringe IV PRN PRN LINE FLUSH <KAYLA OROZCO - Last Filed: 11/03/21 13:47> Assessment and Plan Assessment and plan: I saw and evaluated the patient. Discussed with the nurse practitioner and agree with their findings and plan as documented in this note. Hospitalist Physical - Constitutional Vitals: Temp Pulse Resp BP Pulse Ox 98.1 F 138 H 20 73/50 87 11/02/21 20:00 11/03/21 11:50 11/03/21 11:50 11/03/21 11:50 11/03/21 11:50 HEART Score - HEART Score Troponin: Troponin T 0.023 ng/mL (0.00-0.029) 11/01/21 07:25 Results - Labs CBC & Chem 7: 11/03/21 07:55 04 07:55 Labs: Laboratory Last Values WBC 3.8 K/mm3 (4.5-11.0) L 11/03/21 07:55 RBC 4.73 M/mm3 (3.65-5.03) 11/03/21 07:55 Hgb 13.8 gm/dl (10.1-14.3) 11/03/21 07:55 Hct 41.7 % (30.3-42.9) 11/03/21 07:55 MCV 88 fl (79-97) 11/03/21 07:55 MCH 29 pg (28-32) 11/03/21 07:55 MCHC 33 % (30-34) 11/03/21 07:55 RDW 16.5 % (13.2-15.2) H 11/03/21 07:55 Plt Count 121 K/mm3 (140-440) L 11/03/21 07:55 Lymph % (Auto) 6.3 % (13.4-35.0) L 11/02/21 04:27 [place] % (Auto) 4.0 % (0.0-7.3) 11/02/21 04:27 Eos % (Auto) 0.1 % (0.0-4.3) 11/02/21 04:27 Baso % (Auto) 0.2 % (0.0-1.8) 11/02/21 04:27 Lymph # (Auto) 0.8 K/mm3 (1.2-5.4) L 11/02/21 04:27 [place] # (Auto) 0.5 K/mm3 (0.0-0.8) 11/02/21 04:27 Eos # (Auto) 0.0 K/mm3 (0.0-0.4) 11/02/21 04:27 Baso # (Auto) 0.0 K/mm3 (0.0-0.1) 11/02/21 04:27 Add Manual Diff Complete 04/08/22 07:25 Total Counted 100 11/01/21 07:25 Seg Neutrophils % 89.4 % (40.0-70.0) H 11/02/21 04:27 Seg Neuts % (Manual) 65.0 % (40.0-70.0) 11/01/21 07:25 Band Neutrophils % 2.0 % 11/01/21 07:25 Lymphocytes % (Manual) 21.0 % (13.4-35.0) 11/01/21 07:25 Reactive Lymphs % (Man) 0 % 11/01/21 07:25 Monocytes % (Manual) 4.0 % (0.0-7.3) 11/01/21 07:25 Eosinophils % (Manual) 2.0 % (0.0-4.3) 11/01/21 07:25 Basophils % (Manual) 0 % (0.0-1.8) 11/01/21 07:25 Metamyelocytes % 3.0 % 11/01/21 07:25 Myelocytes % 1.0 % 11/01/21 07:25 Promyelocytes % 2.0 % 11/01/21 07:25 Blast Cells % 0 % 11/01/21 07:25 Nucleated RBC % Not Reportable 11/01/21 07:25 Seg Neutrophils # 10.9 K/mm3 (1.8-7.7) H 11/02/21 04:27 Seg Neutrophils # Man 10.1 K/mm3 (1.8-7.7) H 11/01/21 07:25 Band Neutrophils # 0.3 K/mm3 11/01/21 07:25 Lymphocytes # (Manual) 3.3 K/mm3 (1.2-5.4) 11/01/21 07:25 Abs React Lymphs (Man) 0.0 K/mm3 11/01/21 07:25 Monocytes # (Manual) 0.6 K/mm3 (0.0-0.8) 11/01/21 07:25 Eosinophils # (Manual) 0.3 K/mm3 (0.0-0.4) 11/01/21 07:25 Basophils # (Manual) 0.0 K/mm3 (0.0-0.1) 11/01/21 07:25 Metamyelocytes # 0.5 K/mm3 11/01/21 07:25 Myelocytes # 0.2 K/mm3 11/01/21 07:25 Promyelocytes # 0.3 K/mm3 11/01/21 07:25 Blast Cells # 0.0 K/mm3 11/01/21 07:25 WBC Morphology Not Reportable 11/01/21 07:25 Hypersegmented Neuts Not Reportable 11/01/21 07:25 Hyposegmented Neuts Not Reportable 11/01/21 07:25 Hypogranular Neuts Not Reportable 11/01/21 07:25 Smudge Cells Not Reportable 11/01/21 07:25 Toxic Granulation Not Reportable 11/01/21 07:25 Toxic Vacuolation Not Reportable 11/01/21 07:25 Dohle Bodies Not Reportable 11/01/21 07:25 Pelger-Huet Anomaly Not Reportable 11/01/21 07:25 Lashonda Rods Not Reportable 11/01/21 07:25 Platelet Estimate Consistent w auto 11/01/21 07:25 Clumped Platelets Not Reportable 11/01/21 07:25 Plt Clumps, EDTA Not Reportable 11/01/21 07:25 Large Platelets Not Reportable 11/01/21 07:25 Giant Platelets Not Reportable 11/01/21 07:25 Platelet Satelliting Not Reportable 11/01/21 07:25 Plt Morphology Comment Not Reportable 11/01/21 07:25 RBC Morphology Not Reportable 11/01/21 07:25 Dimorphic RBCs Not Reportable 11/01/21 07:25 Polychromasia Not Reportable 11/01/21 07:25 Hypochromasia Not Reportable 11/01/21 07:25 Poikilocytosis Not Reportable 11/01/21 07:25 Anisocytosis Not Reportable 11/01/21 07:25 Microcytosis Not Reportable 11/01/21 07:25 Macrocytosis Not Reportable 11/01/21 07:25 Spherocytes Not Reportable 11/01/21 07:25 Pappenheimer Bodies Not Reportable 11/01/21 07:25 Sickle Cells Not Reportable 11/01/21 07:25 Target Cells Not Reportable 11/01/21 07:25 Tear Drop Cells Not Reportable 11/01/21 07:25 Ovalocytes Not Reportable 11/01/21 07:25 Helmet Cells Not Reportable 11/01/21 07:25 [place] Bodies Not Reportable 11/01/21 07:25 [place] Rings Not Reportable 11/01/21 07:25 Gabriel Cells Not Reportable 11/01/21 07:25 Bite Cells Not Reportable 11/01/21 07:25 Crenated Cell Not Reportable 11/01/21 07:25 Elliptocytes Not Reportable 11/01/21 07:25 Acanthocytes (Spur) Not Reportable 11/01/21 07:25 Rouleaux Not Reportable 11/01/21 07:25 Hemoglobin C Crystals Not Reportable 11/01/21 07:25 Schistocytes Not Reportable 11/01/21 07:25 Malaria parasites Not Reportable 11/01/21 07:25 Philippe Bodies Not Reportable 11/01/21 07:25 Hem Pathologist Commnt No 11/01/21 07:25 PT 15.5 Sec. (12.2-14.9) H 11/01/21 07:25 INR 1.10 (0.87-1.13) 11/01/21 07:25 APTT 40.6 Sec. (24.2-36.6) H 11/01/21 07:25 ABG pH 7.275 pH Units (7.350-7.450) L 11/03/21 10:25 ABG pCO2 52.7 mm Hg 11/03/21 10:25 ABG pO2 51.7 mm Hg (80.0-90.0) L 11/03/21 10:25 ABG HCO3 23.9 mmol/L (20.0-26.0) 11/03/21 10:25 ABG O2 Saturation 83.3 % (95.0-99.0) L 11/03/21 10:25 ABG O2 Content 16.7 (0.0-44) 11/03/21 10:25 ABG Base Excess -3.5 mmol/L (-2.0-3.0) L 11/03/21 10:25 ABG Hemoglobin 14.5 gm/dl (12.0-16.0) 11/03/21 10:25 ABG Carboxyhemoglobin 1.0 % (0.0-5.0) 11/03/21 10:25 ABG Methemoglobin 0.7 % (0.0-1.5) 11/03/21 10:25 Oxyhemoglobin 81.9 % (95.0-99.0) L 11/03/21 10:25 FiO2 100 % 11/03/21 10:25 Sodium 148 mmol/L (137-145) H 11/03/21 07:55 Potassium 3.6 mmol/L (3.6-5.0) 11/03/21 07:55 Chloride 110.2 mmol/L (98-107) H 11/03/21 07:55 Carbon Dioxide 24 mmol/L (22-30) 11/03/21 07:55 Anion Gap 17 mmol/L 11/03/21 07:55 BUN 51 mg/dL (7-17) H 11/03/21 07:55 Creatinine 2.3 mg/dL (0.6-1.2) H 11/03/21 07:55 Estimated GFR 22 ml/min 11/03/21 07:55 BUN/Creatinine Ratio 22 % 11/03/21 07:55 Glucose 94 mg/dL (65-100) 11/03/21 07:55 POC Glucose 96 mg/dL (70-105) 11/03/21 05:44 Lactic Acid 14.50 mmol/L (0.7-2.0) H* 11/01/21 07:25 Calcium 7.6 mg/dL (8.4-10.2) L 11/03/21 07:55 Total Bilirubin 0.60 mg/dL (0.1-1.2) 11/02/21 04:27 AST 133 units/L (5-40) H 11/02/21 04:27 ALT 123 units/L (7-56) H 11/02/21 04:27 Alkaline Phosphatase 122 units/L (35-129) 11/02/21 04:27 Troponin T 0.023 ng/mL (0.00-0.029) 11/01/21 07:25 Total Protein 6.4 g/dL (6.3-8.2) 11/02/21 04:27 Albumin 3.5 g/dL (3.9-5) L 11/02/21 04:27 Albumin/Globulin Ratio 1.2 % 11/02/21 04:27 Urine Color Yellow (Yellow) 11/01/21 Unknown Urine Turbidity Hazy (Clear) 11/01/21 Unknown Urine pH 6.5 (5.0-7.0) 11/01/21 Unknown Ur Specific [place] 1.020 (1.003-1.030) 11/01/21 Unknown Urine Protein 100 mg/dl mg/dL (Negative) 11/01/21 Unknown Urine Glucose (UA) Negative mg/dL (Negative) 11/01/21 Unknown Urine Ketones Negative mg/dL (Negative) 11/01/21 Unknown Urine Blood Large (Negative) A 11/01/21 Unknown Urine Nitrite Negative (Negative) 11/01/21 Unknown Ur Reducing Substances Not Reportable 11/01/21 Unknown Urine Bilirubin Negative (Negative) 11/01/21 Unknown Urine Ictotest Not Reportable 11/01/21 Unknown Urine Urobilinogen < 2.0 mg/dL (<2.0) 11/01/21 Unknown Ur Leukocyte Esterase Negative (Negative) 11/01/21 Unknown Urine WBC (Auto) 34.0 /HPF (0.0-6.0) H 11/01/21 Unknown Urine RBC (Auto) 14.0 /HPF (0.0-6.0) 11/01/21 Unknown U Epithel Cells (Auto) 1.0 /HPF (0-13.0) 11/01/21 Unknown Urine Bacteria (Auto) 1+ /HPF (Negative) 11/01/21 Unknown Urine Mucus Few /HPF 11/01/21 Unknown Urine Yeast (Budding) Few /HPF 11/01/21 Unknown Urine Opiates Screen Negative 11/01/21 Unknown Urine Methadone Screen Negative 11/01/21 Unknown Ur Barbiturates Screen Negative 11/01/21 Unknown Ur Phencyclidine Scrn Negative 11/01/21 Unknown Ur Amphetamines Screen Positive 11/01/21 Unknown U Benzodiazepines Scrn Negative 11/01/21 Unknown Urine Cocaine Screen Positive 11/01/21 Unknown U Marijuana (THC) Screen Negative 11/01/21 Unknown Drugs of Abuse Note Disclamer 11/01/21 Unknown Blood Type O POSITIVE 11/01/21 07:25 Antibody Screen Negative 11/01/21 07:25 Microbiology: Microbiology 11/01/21 Unknown Urine,Clean Catch Urine Culture - Final Escherichia Coli 11/01/21 07:25 Peripheral/Venous Blood Culture - Preliminary NO GROWTH AFTER 48 HOURS 11/01/21 07:25 Peripheral/Venous Blood Culture - Preliminary NO GROWTH AFTER 48 HOURS 11/01/21 06:51 Tracheal Aspirate Sputum Culture - Preliminary Stauffer/IV: Voiding Method Indwelling Catheter Active Medications - Current Medications Current Medications: Generic Name Dose Route Start Last Admin Trade Name Freq PRN Reason Stop Dose Admin Acetaminophen 650 mg 11/01/21 12:30 Acetaminophen 650 Mg Rect Supp SD Q6H PRN Pain MILD(1-3)/Fever >100.5/ATKINS Heparin Sodium (Porcine) 5,000 unit 11/01/21 12:30 11/03/21 10:40 Heparin 5,000 Unit/1 Ml Vial SUB-Q 5,000 unit Q12HR LAW Administration NORepinephrine/NS 8 MG-250 ML 8 mg in 250 mls @ 3.75 mls/hr 11/01/21 07:00 11/03/21 11:17 Norepinephrine/Ns 8 Mg-250 Ml (Double Conc) IV 25 mcg/min TITRATE LAW 46.875 mls/hr Titration Protocol 2 MCG/MIN Vasopressin 20 unit/ Sodium 101 mls @ 9.09 mls/hr 11/02/21 15:00 11/03/21 11:14 Chloride IV 0.03 units/min TITR LAW 9.09 mls/hr Administration Protocol 0.03 UNITS/MIN Ceftriaxone Sodium 1 gm in 50 mls @ 100 mls/hr 11/03/21 07:00 11/03/21 06:47 Rocephin/Ns 1 Gm/50 Ml IV 100 mls/hr Q24H LAW Administration Protocol Dobutamine HCl/Dextrose 500 mg in 250 mls @ 11.19 mls/hr 11/03/21 11:00 0 11/03/21 10:34 Dobutrex Drip 500mg/D5w 250ml IV 5 mcg/kg/min DIRECT LAW 11.19 mls/hr Administration Protocol 5 MCG/KG/MIN Phenylephrine HCl 100 mg/ 100 mls @ 3 mls/hr 11/03/21 11:00 11/03/21 11:19 Sodium Chloride IV 40 mcg/min TITR LAW 2.4 mls/hr Titration Protocol 50 MCG/MIN Lorazepam 2 mg 11/03/21 12:07 Lorazepam 2 Mg/Ml Vial IV Q2HR PRN Agitation Morphine Sulfate 2 mg 11/03/21 12:07 Morphine 2 Mg/1 Ml Inj IV Q2HR PRN Pain, Moderate (4-6) Ondansetron HCl 4 mg 11/01/21 12:30 Ondansetron 4 Mg/2 Ml Inj IV Q8H PRN Nausea And Vomiting Sodium Chloride 10 ml 11/01/21 12:00 11/03/21 10:41 Sodium Chloride 0.9% 10 Ml Flush Syringe IV 10 ml BID LAW Administration Sodium Chloride 10 ml 11/01/21 12:30 Sodium Chloride 0.9% 10 Ml Flush Syringe IV PRN PRN LINE FLUSH
[2021-11-02] MEDS: VASOPRESSIN 20 UNIT in SODIUM CHLORIDE 0.9% 100 ML IV SCH (20:59)
[2021-11-03] MEDS: NORepinephrine/NS 8 MG-250 ML 8 MG/250 ML INFUS..BTL IV SCH (03:35)
[2021-11-03 05:36] LABS: ABG Base Excess -2.7 mmol/L (-2.0-3.0); ABG HCO3 24.2 mmol/L (20.0-26.0); ABG Methemoglobin 0.7 % (0.0-1.5); ABG Oxygen Saturation 74.9 % (95.0-99.0); ABG PCO2 50.3 mm Hg; ABG PH 7.301 pH Units (7.350-7.450); ABG PO2 43.3 mm Hg (80.0-90.0)
[2021-11-03] MEDS ORDERED: cefTRIAXone/NS 1 GM/50 ML 1 GM/50 ML BAG IV SCH (07:00)
[2021-11-03 08:04] LABS: Hematocrit 41.7 % (30.3-42.9); Hemoglobin 13.8 gm/dl (10.1-14.3); Mean Corpuscular HGB Conc 33 % (30-34); Mean Corpuscular Volume 88 fl (79-97); Platelet Count 121 K/mm3 (140-440); Red Blood Count 4.73 M/mm3 (3.65-5.03); Red Cell Distribution Width 16.5 % (13.2-15.2)
--- NOTE | 2021-11-03 08:08 | Progress Note ---
Assessment and Plan 61 y/o female with acute respiratory failure secondary to out of hospital cardiac arrest with prolonged downtime. 11/03/21: Continue supportive measures. Continue pressors to keep maps >65. Currently awaiting labs to see if eligible for apnea test. No onsite neurology available, all tele medicine. Can ask them about cold calorics. Patient also has CHF, likely drug induced. Very very poor prognosis. Spoke with at bedside this am who was not very understanding of the current situation. He made statements such as "so you are the end all be all" and "you trying to put my in the dirt". I tried my best to explain the clinical state. He also states that he would like his transferred to [facility]. I explained that if he has an accepting physician, if he gives us the name then we can arrange transfer, but at this time, we would not be calling [facility] for transfer as clinically there is nothing they could do that we are not already doing for this patient. The primary team has spoken with the daughter but I am not sure of the exact details of that convo. 1. Continue supportive measures 2. Wean Fio2 as tolerate for sats >88% 3. Follow up echo report 4. Wean Pressors for MAPs> 65 5. Very poor prognosis given cerebral edema present already post arrest and like of neurological improvement. CCT 31 minutes Subjective Date of service: 11/03/21 Interval history: Brain Flow showed absence of uptake throughout the brain. Per report requested copy of the report to show to another physician. On levophed 16 and Vasopression at 0.03. Labs from this am are pending but electrolytes were not appropriate on yesterday. [facility] present and states that patient is already a donor. Objective Vital Signs - 12hr 11/02/21 11/02/21 11/02/21 20:11 20:20 20:21 Pulse Rate 110 H 114 H 114 H Pulse Rate [ From Monitor] Respiratory 20 20 20 Rate Blood Pressure 66/46 84/57 84/57 O2 Sat by Pulse 93 92 91 Oximetry 11/02/21 11/02/21 11/02/21 20:30 20:40 20:41 Pulse Rate 115 H 116 H 116 H Pulse Rate [ From Monitor] Respiratory 20 20 20 Rate Blood Pressure 84/57 88/58 88/58 O2 Sat by Pulse 91 92 92 Oximetry 04/04/1711/02/21 11/02/21 20:50 20:51 21:00 Pulse Rate 117 H 117 H 134 H Pulse Rate [ From Monitor] Respiratory 20 20 20 Rate Blood Pressure 88/67 88/67 88/67 O2 Sat by Pulse 92 92 92 Oximetry 11/02/21 11/02/21 11/02/21 21:01 21:10 21:11 Pulse Rate 135 H 127 H 126 H Pulse Rate [ From Monitor] Respiratory 21 20 20 Rate Blood Pressure 215/129 128/83 128/83 O2 Sat by Pulse 92 88 89 Oximetry 11/02/21 11/02/21 11/02/21 21:20 21:21 21:30 Pulse Rate 96 H 126 H 124 H Pulse Rate [ From Monitor] Respiratory 20 20 20 Rate Blood Pressure 99/53 103/65 101/72 O2 Sat by Pulse 99 89 90 Oximetry 11/02/21 11/02/21 11/02/21 21:41 21:43 21:51 Pulse Rate 123 H 122 H 122 H Pulse Rate [ From Monitor] Respiratory 20 20 20 Rate Blood Pressure 101/72 101/72 97/64 O2 Sat by Pulse 90 91 90 Oximetry 11/02/21 11/02/21 11/02/21 22:00 22:10 22:20 Pulse Rate 121 H 121 H 120 H Pulse Rate [ From Monitor] Respiratory 20 20 20 Rate Blood Pressure 95/60 103/65 88/63 O2 Sat by Pulse 91 91 91 Oximetry 11/02/21 11/02/21 11/02/21 22:30 22:40 22:50 Pulse Rate 118 H 127 H 125 H Pulse Rate [ From Monitor] Respiratory 20 20 20 Rate Blood Pressure 88/63 139/82 118/77 O2 Sat by Pulse 92 92 91 Oximetry 11/02/21 11/02/21 11/02/21 23:00 23:10 23:20 Pulse Rate 124 H 125 H 124 H Pulse Rate [ From Monitor] Respiratory 20 20 20 Rate Blood Pressure 103/73 103/73 108/69 O2 Sat by Pulse 90 91 91 Oximetry 11/02/21 11/02/21 11/02/21 23:30 23:40 23:50 Pulse Rate 124 H 124 H 124 H Pulse Rate [ From Monitor] Respiratory 20 20 20 Rate Blood Pressure 105/67 105/67 96/70 O2 Sat by Pulse 91 92 91 Oximetry 11/03/21 11/03/21 11/03/21 00:00 00:10 00:20 Pulse Rate 125 H 126 H 126 H Pulse Rate [ 125 H From Monitor] Respiratory 20 20 20 Rate Blood Pressure 104/67 104/67 105/71 O2 Sat by Pulse 91 91 92 Oximetry 11/03/21 11/03/21 11/03/21 00:30 00:40 00:50 Pulse Rate 126 H 130 H 135 H Pulse Rate [ From Monitor] Respiratory 20 19 20 Rate Blood Pressure 108/70 108/70 185/106 O2 Sat by Pulse 91 92 90 Oximetry 11/03/21 11/03/21 11/03/21 01:00 01:10 01:20 Pulse Rate 150 H 133 H 129 H Pulse Rate [ From Monitor] Respiratory 18 20 20 Rate Blood Pressure 185/106 93/69 110/74 O2 Sat by Pulse 88 90 93 Oximetry 11/03/21 11/03/21 11/03/21 01:30 01:40 01:50 Pulse Rate 126 H 126 H 123 H Pulse Rate [ From Monitor] Respiratory 20 20 20 Rate Blood Pressure 102/48 102/48 94/61 O2 Sat by Pulse 92 94 95 Oximetry 11/03/21 11/03/21 11/03/21 02:00 02:10 02:20 Pulse Rate 122 H 121 H 120 H Pulse Rate [ From Monitor] Respiratory 20 20 20 Rate Blood Pressure 80/51 80/51 84/52 O2 Sat by Pulse 94 95 93 Oximetry 11/03/21 11/03/21 11/03/21 02:30 02:40 02:50 Pulse Rate 120 H 117 H 115 H Pulse Rate [ From Monitor] Respiratory 20 20 20 Rate Blood Pressure 87/49 72/52 105/73 O2 Sat by Pulse 94 93 96 Oximetry 11/03/21 11/03/21 11/03/21 03:00 03:10 03:20 Pulse Rate 129 H 121 H 119 H Pulse Rate [ From Monitor] Respiratory 20 20 20 Rate Blood Pressure 170/100 121/82 91/58 O2 Sat by Pulse 94 90 90 Oximetry 11/03/21 11/03/21 11/03/21 03:30 03:40 03:50 Pulse Rate 118 H 117 H 118 H Pulse Rate [ From Monitor] Respiratory 20 20 20 Rate Blood Pressure 80/59 80/59 93/67 O2 Sat by Pulse 91 92 94 Oximetry 11/03/21 11/03/21 11/03/21 04:00 04:10 04:20 Pulse Rate 125 H 116 H 144 H Pulse Rate [ 126 H From Monitor] Respiratory 20 20 20 Rate Blood Pressure 91/65 89/63 104/76 O2 Sat by Pulse 91 93 94 Oximetry 11/03/21 11/03/21 11/03/21 04:30 04:40 04:50 Pulse Rate 126 H 127 H 133 H Pulse Rate [ From Monitor] Respiratory 20 20 20 Rate Blood Pressure 108/75 108/75 205/120 O2 Sat by Pulse 86 86 87 Oximetry 11/03/21 11/03/21 11/03/21 05:00 05:10 05:20 Pulse Rate 129 H 126 H 125 H Pulse Rate [ From Monitor] Respiratory 20 20 20 Rate Blood Pressure 205/120 91/65 82/59 O2 Sat by Pulse 85 90 88 Oximetry 11/03/21 11/03/21 11/03/21 05:30 05:40 05:50 Pulse Rate 125 H 122 H 121 H Pulse Rate [ From Monitor] Respiratory 19 20 21 Rate Blood Pressure 89/65 89/65 93/59 O2 Sat by Pulse 88 90 90 Oximetry 11/03/21 11/03/21 11/03/21 06:00 06:10 06:20 Pulse Rate 120 H 119 H 117 H Pulse Rate [ From Monitor] Respiratory 20 20 20 Rate Blood Pressure 94/57 94/57 92/56 O2 Sat by Pulse 91 90 91 Oximetry 11/03/21 11/03/21 11/03/21 06:30 06:40 06:50 Pulse Rate 116 H 116 H 115 H Pulse Rate [ From Monitor] Respiratory 20 21 20 Rate Blood Pressure 76/52 76/52 84/56 O2 Sat by Pulse 89 92 94 Oximetry 11/03/21 11/03/21 11/03/21 07:00 07:10 07:20 Pulse Rate 115 H 115 H 115 H Pulse Rate [ From Monitor] Respiratory 20 20 20 Rate Blood Pressure 89/62 89/62 83/60 O2 Sat by Pulse 93 Oximetry 11/03/21 11/03/21 11/03/21 07:30 07:40 07:50 Pulse Rate 116 H 118 H 117 H Pulse Rate [ From Monitor] Respiratory 20 20 20 Rate Blood Pressure 75/49 75/49 86/62 O2 Sat by Pulse 82 L Oximetry Constitutional: no acute distress, comatose Eyes: non-icteric ENT: other (orally intubated ) Neck: supple Effort: normal Ascultation: Bilateral: clear Percussion: Bilateral: not dull Cardiovascular: regular rate and rhythm Gastrointestinal: normoactive bowel sounds, soft Extremities: pulses normal Neurologic: unable to assess CBC and BMP: 11/02/21 04:27 11/02/21 04:27 ABG, PT/INR, D-dimer: ABG ABG pH 7.301 pH Units (7.350-7.450) L 11/03/21 05:30 ABG pCO2 50.3 mm Hg 11/03/21 05:30 ABG pO2 43.3 mm Hg (80.0-90.0) L 11/03/21 05:30 ABG O2 Saturation 74.9 % (95.0-99.0) L 11/03/21 05:30 PT/INR, D-dimer PT 15.5 Sec. (12.2-14.9) H 11/01/21 07:25 INR 1.10 (0.87-1.13) 11/01/21 07:25 Abnormal lab findings: Abnormal Labs 11/01/21 11/01/21 11/01/21 06:50 07:25 07:25 WBC 15.5 H RBC Hgb Hct RDW 17.0 H Lymph % (Auto) Lymph # (Auto) Seg Neutrophils % Seg Neutrophils # Seg Neutrophils # Man 10.1 H PT 15.5 H APTT 40.6 H ABG pH 6.960 L* ABG pO2 273.3 H ABG HCO3 16.4 L ABG O2 Saturation 99.3 H ABG Base Excess -16.2 L ABG Carboxyhemoglobin 5.5 H Oxyhemoglobin 93.4 L Sodium Potassium Chloride Carbon Dioxide BUN Creatinine Glucose POC Glucose Lactic Acid Calcium AST ALT Alkaline Phosphatase Total Protein Albumin Urine Blood Urine WBC (Auto) 11/01/21 11/01/21 11/01/21 07:25 07:25 23:44 WBC RBC Hgb Hct RDW Lymph % (Auto) Lymph # (Auto) Seg Neutrophils % Seg Neutrophils # Seg Neutrophils # Man PT APTT ABG pH ABG pO2 ABG HCO3 ABG O2 Saturation ABG Base Excess ABG Carboxyhemoglobin Oxyhemoglobin Sodium 146 H Potassium 3.5 L Chloride Carbon Dioxide 14 L BUN Creatinine 1.5 H Glucose 292 H POC Glucose 138 H Lactic Acid 14.50 H* Calcium 7.8 L AST 112 H ALT 78 H Alkaline Phosphatase 136 H Total Protein 6.0 L Albumin 3.4 L Urine Blood Urine WBC (Auto) 11/01/21 11/01/21 11/02/21 Unknown Unknown 04:27 WBC 12.2 H RBC 5.27 H Hgb 15.0 H Hct 45.9 H RDW 16.0 H Lymph % (Auto) 6.3 L Lymph # (Auto) 0.8 L Seg Neutrophils % 89.4 H Seg Neutrophils # 10.9 H Seg Neutrophils # Man PT APTT ABG pH 7.075 L* ABG pO2 74.1 L ABG HCO3 16.2 L ABG O2 Saturation 89.8 L ABG Base Excess -14.2 L ABG Carboxyhemoglobin Oxyhemoglobin 86.0 L Sodium Potassium Chloride Carbon Dioxide BUN Creatinine Glucose POC Glucose Lactic Acid Calcium AST ALT Alkaline Phosphatase Total Protein Albumin Urine Blood Large A Urine WBC (Auto) 34.0 H 11/02/21 11/02/21 11/02/21 04:27 04:50 05:28 WBC RBC Hgb Hct RDW Lymph % (Auto) Lymph # (Auto) Seg Neutrophils % Seg Neutrophils # Seg Neutrophils # Man PT APTT ABG pH ABG pO2 97.4 H ABG HCO3 ABG O2 Saturation ABG Base Excess ABG Carboxyhemoglobin Oxyhemoglobin Sodium 149 H Potassium Chloride 108.9 H Carbon Dioxide BUN 33 H Creatinine 1.9 H Glucose 128 H POC Glucose 109 H Lactic Acid Calcium 7.5 L AST 133 H ALT 123 H Alkaline Phosphatase Total Protein Albumin 3.5 L Urine Blood Urine WBC (Auto) 11/03/21 05:30 WBC RBC Hgb Hct RDW Lymph % (Auto) Lymph # (Auto) Seg Neutrophils % Seg Neutrophils # Seg Neutrophils # Man PT APTT ABG pH 7.301 L ABG pO2 43.3 L ABG HCO3 ABG O2 Saturation 74.9 L ABG Base Excess -2.7 L ABG Carboxyhemoglobin Oxyhemoglobin 73.5 L Sodium Potassium Chloride Carbon Dioxide BUN Creatinine Glucose POC Glucose Lactic Acid Calcium AST ALT Alkaline Phosphatase Total Protein Albumin Urine Blood Urine WBC (Auto)
[2021-11-03 08:17] LABS: Calcium 7.6 mg/dL (8.4-10.2)
--- NOTE | 2021-11-03 08:56 | Event Note ---
Date: 11/03/21 Patient is clinically in a coma, not medication induced. There is a CT of the head that was done hours of admission that shows diffuse cerebral edema and given history this is likely secondary to anoxic brain injury. The patient as not been on any sedatives since admission and her UDS was positive for stimulants only (cocaine and amphetamines). The patient is normothermic. Blood pressure is normal but this is on vasopressor support. There is not severe acid/base disturbance, or severe electrolyte abnormality but her renal function is impaired and she does have hypernatremia. This patient was never on paralytics. Her pupils are not reactive to bright light. Her corneal reflex is absent, her oculovestibular reflex is absent, her oculocephalic reflex is absent. Her gag is absent and cough is absent, even in deep endotracheal suctioning. She also has a brain flow study that is absent of brain flow. Cold Calorics were done at 0845 and time of breath is considered 0845. Called first with no answer, then called daughter and she answered. Explained current situation.
--- NOTE | 2021-11-03 10:35 | Progress Note ---
Assessment and Plan 1. Status post cardiopulmonary arrest probably precipitated by polysubstance abuse 2. Respiratory failure intubated on mechanical ventilator 3. Anoxic encephalopathy/clinically brain 4. Atrial fibrillation with a controlled ventricular response 5. Acute kidney injury 6. Abnormal liver function test 7. Polysubstance abuse 8. Secondary polycythemia Plan. Event note this morning shows patient to be clinically brain . Communication of this to family as per the hospitalist. Termination of all ordered life support measures as per hospitalist. Subjective Date of service: 11/03/21 Interval history: No change in clinical status Objective Vital Signs Temp Pulse Pulse Resp BP Pulse Ox 11/03/21 08:40 116 H 20 90/54 11/03/21 08:30 116 H 19 90/54 11/03/21 08:20 118 H 20 83/54 11/03/21 08:10 117 H 20 90/56 11/03/21 08:00 119 H 116 H 20 87/52 94 11/03/21 07:50 117 H 20 86/62 11/03/21 07:40 118 H 20 75/49 82 L 11/03/21 07:30 116 H 20 75/49 11/03/21 07:20 115 H 20 83/60 11/03/21 07:10 115 H 20 89/62 93 11/03/21 07:00 115 H 20 89/62 11/03/21 06:50 115 H 20 84/56 94 11/03/21 06:40 116 H 21 76/52 92 11/03/21 06:30 116 H 20 76/52 89 11/03/21 06:20 117 H 20 92/56 91 11/03/21 06:10 119 H 20 94/57 90 11/03/21 06:00 120 H 20 94/57 91 11/03/21 05:50 121 H 21 93/59 90 11/03/21 05:40 122 H 20 89/65 90 11/03/21 05:30 125 H 19 89/65 88 11/03/21 05:20 125 H 20 82/59 88 11/03/21 05:10 126 H 20 91/65 90 11/03/21 05:00 129 H 20 205/120 85 11/03/21 04:50 133 H 20 205/120 87 11/03/21 04:40 127 H 20 108/75 86 11/03/21 04:30 126 H 20 108/75 86 11/03/21 04:20 144 H 20 104/76 94 11/03/21 04:10 116 H 20 89/63 93 11/03/21 04:00 125 H 126 H 20 91/65 91 11/03/21 03:50 118 H 20 93/67 94 11/03/21 03:40 117 H 20 80/59 92 11/03/21 03:30 118 H 20 80/59 91 11/03/21 03:20 119 H 20 91/58 90 11/03/21 03:10 121 H 20 121/82 90 11/03/21 03:00 129 H 20 170/100 94 11/03/21 02:50 115 H 20 105/73 96 11/03/21 02:40 117 H 20 72/52 93 11/03/21 02:30 120 H 20 87/49 94 11/03/21 02:20 120 H 20 84/52 93 11/03/21 02:10 121 H 20 80/51 95 11/03/21 02:00 122 H 20 80/51 94 11/03/21 01:50 123 H 20 94/61 95 11/03/21 01:40 126 H 20 102/48 94 11/03/21 01:30 126 H 20 102/48 92 11/03/21 01:20 129 H 20 110/74 93 11/03/21 01:10 133 H 20 93/69 90 11/03/21 01:00 150 H 18 185/106 88 11/03/21 00:50 135 H 20 185/106 90 11/03/21 00:40 130 H 19 108/70 92 11/03/21 00:30 126 H 20 108/70 91 11/03/21 00:20 126 H 20 105/71 92 11/03/21 00:10 126 H 20 104/67 91 11/03/21 00:00 125 H 125 H 20 104/67 91 11/02/21 23:50 124 H 20 96/70 91 11/02/21 23:40 124 H 20 105/67 92 11/02/21 23:30 124 H 20 105/67 91 11/02/21 23:20 124 H 20 108/69 91 11/02/21 23:10 125 H 20 103/73 91 11/02/21 23:00 124 H 20 103/73 90 11/02/21 22:50 125 H 20 118/77 91 11/02/21 22:40 127 H 20 139/82 92 11/02/21 22:30 118 H 20 88/63 92 11/02/21 22:20 120 H 20 88/63 91 11/02/21 22:10 121 H 20 103/65 91 11/02/21 22:00 121 H 20 95/60 91 11/02/21 21:51 122 H 20 97/64 90 11/02/21 21:43 122 H 20 101/72 91 11/02/21 21:41 123 H 20 101/72 90 11/02/21 21:30 124 H 20 101/72 90 11/02/21 21:21 126 H 20 103/65 89 11/02/21 21:20 96 H 20 99/53 99 11/02/21 21:11 126 H 20 128/83 89 11/02/21 21:10 127 H 20 128/83 88 11/02/21 21:01 135 H 21 215/129 92 11/02/21 21:00 134 H 20 88/67 92 11/02/21 20:51 117 H 20 88/67 92 11/02/21 20:50 117 H 20 88/67 92 11/02/21 20:41 116 H 20 88/58 92 11/02/21 20:40 116 H 20 88/58 92 11/02/21 20:30 115 H 20 84/57 91 11/02/21 20:21 114 H 20 84/57 91 11/02/21 20:20 114 H 20 84/57 92 11/02/21 20:11 110 H 20 66/46 93 11/02/21 20:00 98.1 F 108 H 123 H 19 65/37 89 11/02/21 19:51 108 H 20 66/42 90 11/02/21 19:41 108 H 20 92/64 91 11/02/21 19:30 110 H 20 92/64 93 11/02/21 19:21 109 H 20 95/55 93 11/02/21 19:11 109 H 20 96/62 93 11/02/21 19:00 108 H 20 96/62 93 11/02/21 18:51 107 H 20 88/56 94 11/02/21 18:41 107 H 20 91/59 93 11/02/21 18:30 108 H 20 91/59 92 11/02/21 18:21 109 H 20 92/66 92 11/02/21 18:11 110 H 20 91/63 92 11/02/21 18:00 108 H 20 91/63 93 11/02/21 17:51 108 H 20 93/62 92 11/02/21 17:41 109 H 20 97/66 93 11/02/21 17:30 110 H 20 97/66 93 11/02/21 17:21 111 H 20 94/69 92 11/02/21 17:11 110 H 20 107/65 91 11/02/21 17:00 111 H 20 107/65 95 11/02/21 16:51 111 H 20 98/65 96 11/02/21 16:41 111 H 20 88/64 96 11/02/21 16:30 112 H 20 88/64 94 11/02/21 16:21 111 H 20 82/60 94 11/02/21 16:11 110 H 20 97/61 95 11/02/21 16:00 98.3 F 110 H 111 H 19 97/61 96 11/02/21 15:51 110 H 20 88/62 95 11/02/21 15:41 110 H 21 84/60 95 11/02/21 15:30 110 H 20 84/60 96 11/02/21 15:21 111 H 20 75/51 94 11/02/21 15:19 119 H 56/33 97 11/02/21 15:11 110 H 20 93/65 94 11/02/21 15:00 110 H 20 93/65 96 11/02/21 14:50 111 H 20 83/58 97 11/02/21 14:40 113 H 20 74/51 97 11/02/21 14:30 113 H 20 62/40 94 11/02/21 14:20 125 H 20 225/141 99 11/02/21 14:11 106 H 20 139/83 94 11/02/21 14:01 111 H 20 48/26 99 11/02/21 13:51 109 H 20 74/51 97 11/02/21 13:41 111 H 20 100/67 97 11/02/21 13:30 108 H 20 100/67 97 11/02/21 13:27 108 H 15 90/64 97 11/02/21 12:30 106 H 20 90/63 100 11/02/21 12:21 106 H 20 98/66 100 11/02/21 12:13 109 H 83/61 99 11/02/21 12:11 107 H 20 72/48 99 11/02/21 12:00 99.3 F 107 H 107 H 20 72/48 100 11/02/21 11:51 106 H 20 95/63 98 11/02/21 11:41 108 H 19 82/55 100 11/02/21 11:30 109 H 18 82/55 100 11/02/21 11:21 109 H 20 83/61 100 11/02/21 11:11 112 H 20 113/80 99 11/02/21 11:01 113/80 97 11/02/21 10:51 113 H 20 98/50 97 11/02/21 10:41 112 H 24 81/54 98 - Physical Examination General: Other (Unresponsive) HEENT: Positive: PERRL, Normocephaly, Mucus Membranes Moist Neck: Positive: neck supple. Negative: JVD/HJR Cardiac: Positive: Regular Rate, S1/S2, PMI, Dilated, Laterally Displaced Lungs: Positive: clear to auscultation, No Wheeze, Rales, Rhonchi Neuro: Positive: Other (Unresponsive ) Abdomen: Positive: Soft, Active Bowel Sounds Extremities: Absent: edema - Labs and Meds CBC 11/03/21 Range/Units 07:55 WBC 3.8 L (4.5-11.0) K/mm3 RBC 4.73 (3.65-5.03) M/mm3 Hgb 13.8 (10.1-14.3) gm/dl Hct 41.7 (30.3-42.9) % Plt Count 121 L (140-440) K/mm3 Comprehensive Metabolic Panel 11/03/21 Range/Units 07:55 Sodium 148 H (137-145) mmol/L Potassium 3.6 (3.6-5.0) mmol/L Chloride 110.2 H (98-107) mmol/L Carbon Dioxide 24 (22-30) mmol/L BUN 51 H (7-17) mg/dL Creatinine 2.3 H (0.6-1.2) mg/dL Glucose 94 (65-100) mg/dL Calcium 7.6 L (8.4-10.2) mg/dL
[2021-11-03 10:40] LABS: ABG Base Excess -3.5 mmol/L (-2.0-3.0); ABG HCO3 23.9 mmol/L (20.0-26.0); ABG Methemoglobin 0.7 % (0.0-1.5); ABG Oxygen Saturation 83.3 % (95.0-99.0); ABG PCO2 52.7 mm Hg; ABG PH 7.275 pH Units (7.350-7.450); ABG PO2 51.7 mm Hg (80.0-90.0)
[2021-11-03] MEDS: HEPARIN 5,000 UNIT/1 ML VIAL SUB-Q SCH (10:40)
[2021-11-03] MEDS ORDERED: CALCIUM GLUCONATE 2,000 MG in SODIUM CHLORIDE 0.9% 100 ML IV ONE (10:52)
[2021-11-03] MEDS ORDERED: SODIUM BICARB 8.4% 50 MEQ/50 ML SYRINGE IV ONE (10:52)
[2021-11-03] MEDS ORDERED: PHENYLEPHRINE 100 MG in SODIUM CHLORIDE 0.9% 90 ML IV SCH (11:00)
[2021-11-03] MEDS ORDERED: DOBUTamine/D5W 500 MG/250 ML 500 MG/250 ML BAG IV SCH (11:00)
[2021-11-03] MEDS: VASOPRESSIN 20 UNIT in SODIUM CHLORIDE 0.9% 100 ML IV SCH (11:14)
[2021-11-03] MEDS ORDERED: LORazepam 2 MG/ML VIAL IV PRN (12:07)
[2021-11-03] MEDS ORDERED: MORPHINE 2 MG/1 ML INJ IV PRN (12:07)
--- NOTE | 2021-11-03 12:18 | Death Summary ---
Summary - Providers Consults: 11/01/21 11:59 Consult to Physician [CONS] Routine Comment: Consulting Provider: CARLITOS ZUNIGA Physician Instructions: Reason For Exam: cardiac arrest 11/01/21 12:19 Consult to Physician [CONS] Routine Comment: Consulting Provider: RACHELE URBINA Physician Instructions: Reason For Exam: cardiac arrest 11/01/21 12:24 Consult to Physician [CONS] Routine Comment: Consulting Provider: SHANEL BOONE Physician Instructions: Reason For Exam: cardiac arrest, assess for brain Attending: KAYLA OROZCO MD - summary Date of admission: 11/01/21 11:59 Date of : 11/03/21 Reason for admission: s/p cardiac arrest Significant findings: This is a 61-year-old female with polysubstance abuse (cocaine, amphetamine, nicotine, heroin and fentanyl) who presented to [facility] on 11/01 s/p cardiac arrest via EMS. Per EMS report and ER physician documentation patient had collapsed at 0533 on 11/01 on EMS arrival patient was found to be apneic, pulseless and unresponsive. Per patient told EMS that she was walking with him and suddenly collapsed. EMS immediately started ACLS/CPR and after multiple rounds of epinephrine and ROSC was received 45 minutes after initial call and patient was intubated. In the emergency department patient had another cardiac arrest and received 1 mg epinephrine through IO line and ECG showed atrial fibrillation, right bundle branch block and diffuse ST segment depression and cardiology was contacted however patient did not meet STEMI criteria. Patient became hypotensive also and was started on Levophed. Patient received a CT head which showed cerebral edema. She also received 1 amp of bicarbonate for acidosis. Patient admitted to the hospitalist service s/p cardiac arrest with consults to [facility]. On 11/02 patient had a nuclear brain flow study which showed no cranial blood flow. CCM had prolonged conversation with family today about prognosis however family was not accepting. I updated the family about nuclear brain test study results but they were not receptive. This morning testing was performed by [facility] for oculovestibular reflex and oculocephalic reflexs which were absent. Family informed of findings and alone with no cough, gag and pupil reflex patient was pronounced brain . Family to visit today. Cerebral edema Anoxic brain injury h/o polysubstance abuse Afib with controlled RVR HFrEF Acute hypoxic respiratory failure Obesity Transaminitis Protein calorie malnutrition Acute kidney injury likely secondary to vasomotor nephropathy Hypernatremia Hyperchloremia Ecoli UTI Gram Positive cocci in tracheal aspirate Leukocytosis CCT 60 min
[2021-11-03 14:19] VITALS: BP 81/45
== END 2021-11-03 17:52 | DRG 208 ==
LOC: ED 06:23 → CC1 11:59
PROVIDERS: ADMIT Internal Medicine; ATTEND Internal Medicine
PROC: 4A033R1 Measurement of Arterial Saturation, Peripheral, Percutaneous Approach (ICD-10-PCS; principal; 2021-11-01)
PROC: 5A1945Z Respiratory Ventilation, 24-96 Consecutive Hours (ICD-10-PCS; 2021-11-01)
PROC: 05HY33Z Insertion of Infusion Device into Upper Vein, Percutaneous Approach (ICD-10-PCS; 2021-11-01)
PROC: B543ZZA Ultrasonography of Right Jugular Veins, Guidance (ICD-10-PCS; 2021-11-01)
DX: J96.01 Acute respiratory failure with hypoxia (principal); I46.9 Cardiac arrest, cause unspecified; G93.1 Anoxic brain damage, not elsewhere classified; G93.6 Cerebral edema; I95.9 Hypotension, unspecified; F14.10 Cocaine abuse, uncomplicated; F15.10 Other stimulant abuse, uncomplicated; I48.91 Unspecified atrial fibrillation; D75.1 Secondary polycythemia; I50.20 Unspecified systolic (congestive) heart failure; E66.9 Obesity, unspecified; E46 Unspecified protein-calorie malnutrition; Z68.28 Body mass index [BMI] 28.0-28.9, adult; D72.829 Elevated white blood cell count, unspecified; N39.0 Urinary tract infection, site not specified; E87.0 Hyperosmolality and hypernatremia; E87.8 Other disorders of electrolyte and fluid balance, not elsewhere classified; N17.0 Acute kidney failure with tubular necrosis; B96.20 Unspecified Escherichia coli [E. coli] as the cause of diseases classified elsewhere
CPT/HCPCS: 36415; 36600; 70450; 71045; 74018; 78601; 80048; 80053; 80307; 81001; 82140; 82803; 82962; 84484; 85007; 85025; 85027; 85610; 85730; 86850; 86900; 86901; 87040; 87070; 87076; 87086; 87186; 87205; 93005; 93306; 94002; 94003; G0378; J2354; Q0162; A9512; C8929; J0610; J0696; J1250; J1644; J2060; J2370; J7030; J7120